=== PATIENT | female | born 1990 | race African-American/Black ===

== ENCOUNTER 2021-01-18 09:17 | Inpatient (IN) ==
[2021-01-18] MEDS ORDERED: ONDANSETRON 4 MG/2 ML VIAL IV PRN ×2 (11:41→23:35)
[2021-01-18] MEDS: LABETALOL 100 MG TABLET PO SCH ×2 (12:04→19:46)
[2021-01-18] MEDS: BUTORPHANOL 2 MG/ML VIAL IV PRN ×2 (12:07→19:04)
[2021-01-18] MEDS: LACTATED RINGERS 1,000 ML IV SCH ×2 (14:14→22:39)
[2021-01-18] MEDS ORDERED: OXYTOCIN/LR 20 UNIT/1,000 ML BAG IV SCH (23:45)
[2021-01-19 00:02] LABS: Basophils % 0.2 % (0.0-0.8); Eosinophils % 0.1 % (0.00-10.9); Hematocrit 33.8 VOL% (35.7-47.0); Hemoglobin 10.6 GM/DL (12.0-16.0); Immature Granulocytes % 0.6 %; Immature Granulocytes Absolute 0.05 #; Lymphocytes # 1.4 10*3/uL (1.4-4.0); Lymphocytes % 16.6 % (21.3-54.2); Mean Corpuscular HGB Conc 31.4 GM/DL (32-36); Mean Corpuscular Volume 97.4 FL (87-102); Mean Platelet Volume 9.4 FL (9.6-12.0); Monocytes % 8.7 % (1.7-12.7); Neutrophils % 73.8 % (38.7-73.9); Platelet Count 308 T/CUMM (130-400); Red Blood Count 3.47 MC/CUMM (3.8-5.5); Red Cell Distribution Width 14.6 % (9.3-17.3); White Blood Count 8.2 T/CUMM (4-12)
[2021-01-19] MEDS ORDERED: NALOXONE 0.4 MG/ML VIAL IV PRN (00:03)
[2021-01-19] MEDS ORDERED: CITRIC ACID/SODIUM CITRATE 30 ML UDCUP PO ONE (00:03)
[2021-01-19] MEDS ORDERED: hydrOXYzine HCL 25 MG/1 ML VIAL IM PRN (00:03)
[2021-01-19] MEDS ORDERED: ONDANSETRON 4 MG/2 ML VIAL IV ONE (00:03)
[2021-01-19] MEDS ORDERED: PROMETHAZINE 25 MG/1 ML VIAL IM ONE (00:03)
[2021-01-19] MEDS ORDERED: ePHEDrine 50 MG/ML VIAL IV PRN (00:03)
[2021-01-19] MEDS ORDERED: FAMOTIDINE 20 MG/2 ML VIAL IV ONE (00:03)
[2021-01-19] MEDS ORDERED: diphenhydrAMINE 50 MG/1 ML VIAL IV PRN ×2 (00:03)
[2021-01-19] MEDS ORDERED: AMPICILLIN INJ 2,000 MG in SODIUM CHLORIDE 0.9% 100 ML IV ONE (00:07)
[2021-01-19 00:28] LABS: Alanine Aminotransferase 19 U/L (13-56); Albumin 2.7 G/DL (3.4-5.0); Alkaline Phosphatase 137 U/L (45-117); Aspartate Amino Transferase 23 U/L (0-37); Bilirubin,Total < 0.39 MG/DL (0.2-1.0); Blood Urea Nitrogen 7 MG/DL (7-18); Calcium 8.9 MG/DL (8.5-10.1); Carbon Dioxide 22 MMOL/L (21-32); Estimated Glom Filtration Rate 118 ML/MIN; Glucose 90 MG/DL (74-106); Osmolality,Calculated 274.5 MOS/KG (273-304); Potassium 3.6 MMOL/L (3.5-5.1); Sodium 139 MMOL/L (136-145); Total Protein 8.2 G/DL (6.4-8.2)
[2021-01-19 00:46] LABS: Hepatitis B Surface Ag Quant < 0.10 Index; Hepatitis B Surface Ag Result Non-Reactive (NonReactive)
[2021-01-19 00:55] LABS: HIV Antigen/Antibody Result Nonreactive (Nonreactive); Rubella Antibody IgG Result Reactive (NonReactive)
[2021-01-19] MEDS: fentaNYL 2 MCG/ROPIV 0.2% EPID 100 ML EPIDURAL SCH ×2 (00:59→08:43)
[2021-01-19] MEDS ORDERED: LABETALOL 100 MG TABLET PO SCH (03:00)
[2021-01-19] MEDS ORDERED: METHYLERGONOVINE 0.2 MG/1 ML AMP ONE (03:04)
[2021-01-19] MEDS ORDERED: CARBOPROST TROMETHAMINE 250 MCG/ML AMP IM ONE (03:04)
[2021-01-19] MEDS ORDERED: TRANEXAMIC ACID 1,000 MG/10 ML VIAL ONE (03:04)
[2021-01-19] MEDS ORDERED: miSOPROStoL 200 MCG TABLET ONE (03:04)
[2021-01-19] MEDS: AMPICILLIN INJ 1,000 MG in SODIUM CHLORIDE 0.9% 100 ML IV SCH ×2 (04:16→08:26)
[2021-01-19] MEDS: LACTATED RINGERS 1,000 ML IV SCH ×4 (04:19→23:07)
[2021-01-19] MEDS ORDERED: BISACODYL 10 MG SUPP RECTAL PRN (12:58)
[2021-01-19] MEDS ORDERED: RHO(D) IMMUNE GLOBULIN 300 MCG SYRINGE IM ONE (12:58)
[2021-01-19] MEDS ORDERED: OXYTOCIN/LR 20 UNIT/1,000 ML BAG IV ONE (12:58)
[2021-01-19] MEDS ORDERED: MEASLES/MUMPS/RUBELLA VACCINE 0.5 ML VIAL SUBCUT ONE (12:58)
[2021-01-19] MEDS ORDERED: WITCH HAZEL PADS 100/JAR TOP PRN (12:58)
[2021-01-19] MEDS ORDERED: oxyCODONE/ACETAMINOPHEN 5-325 MG TABLET PO PRN ×2 (12:58)
[2021-01-19] MEDS ORDERED: ACETAMINOPHEN 325 MG TABLET PO PRN (12:58)
[2021-01-19] MEDS ORDERED: HYDROCORTISONE 2.5% RECTAL CREAM 30 GM TUBE TOP PRN (12:58)
[2021-01-19] MEDS ORDERED: LANOLIN 50% CREAM 0.3 OZ TUBE TOP PRN (12:58)
[2021-01-19] MEDS ORDERED: BENZOCAINE 20%/MENTHOL 0.5% SPRAY 56 GM CAN TOP PRN (12:58)
[2021-01-19] MEDS ORDERED: DIPH/TET/ACEL PERT BOOSTER VACCINE 0.5 ML VIAL IM ONE (12:58)
[2021-01-19] MEDS ORDERED: ONDANSETRON 4 MG/2 ML VIAL IV PRN (12:58)
[2021-01-19] MEDS ORDERED: hydrALAZINE 20 MG/1 ML VIAL IV ONE (13:45)
[2021-01-19 14:19] LABS: PT Patient Result 10.8 SECS (9.8-11.9); Partial Thromboplastin Time 27.9 SECS (23.9-33.8)
[2021-01-19 14:20] LABS: Basophils % 0.1 % (0.0-0.8); Eosinophils % 0.1 % (0.00-10.9); Hematocrit 34.3 VOL% (35.7-47.0); Hemoglobin 10.9 GM/DL (12.0-16.0); Immature Granulocytes % 0.6 %; Immature Granulocytes Absolute 0.07 #; Lymphocytes # 0.8 10*3/uL (1.4-4.0); Lymphocytes % 6.2 % (21.3-54.2); Mean Corpuscular HGB Conc 31.8 GM/DL (32-36); Mean Corpuscular Volume 97.2 FL (87-102); Mean Platelet Volume 9.8 FL (9.6-12.0); Monocytes % 6.3 % (1.7-12.7); NRBC # 0.02 10*3/uL; Neutrophils % 86.7 % (38.7-73.9); Platelet Count 296 T/CUMM (130-400); Red Blood Count 3.53 MC/CUMM (3.8-5.5); Red Cell Distribution Width 14.9 % (9.3-17.3); White Blood Count 12.4 T/CUMM (4-12)
[2021-01-19 14:22] LABS: Albumin 2.5 G/DL (3.4-5.0); Bilirubin,Direct 0.12 MG/DL (0.0-0.20); Bilirubin,Total 1.1 MG/DL (0.2-1.0); Calcium 9.1 MG/DL (8.5-10.1); Osmolality,Calculated 278.3 MOS/KG (273-304); Potassium 4.3 MMOL/L (3.5-5.1); Total Protein 7.7 G/DL (6.4-8.2)
[2021-01-19] MEDS ORDERED: MAGNESIUM SULF RIDER 4 GM in PREMIX 1 EACH IV ONE (15:11)
[2021-01-19] MEDS ORDERED: MAGNESIUM SULF RIDER 100 ML IV ONE (15:20)
[2021-01-19] MEDS: MAGNESIUM SULF DRIP 40 GM/1,000 ML ML IV SCH (15:50)
[2021-01-19] MEDS: IBUPROFEN 800 MG TABLET PO PRN (17:22)
[2021-01-19] MEDS: DOCUSATE SODIUM 100 MG CAPSULE PO SCH (20:47)
[2021-01-20 04:59] LABS: Basophils % 0.2 % (0.0-0.8); Eosinophils # 0.1 10*3/uL (0.0-0.87); Eosinophils % 0.8 % (0.00-10.9); Hematocrit 32.7 VOL% (35.7-47.0); Hemoglobin 10.4 GM/DL (12.0-16.0); Immature Granulocytes % 0.8 %; Lymphocytes # 1.4 10*3/uL (1.4-4.0); Mean Corpuscular HGB Conc 31.8 GM/DL (32-36); Mean Platelet Volume 9.6 FL (9.6-12.0); Monocytes % 6.3 % (1.7-12.7); Neutrophils % 80.9 % (38.7-73.9); Platelet Count 262 T/CUMM (130-400); Red Blood Count 3.37 MC/CUMM (3.8-5.5); Red Cell Distribution Width 14.8 % (9.3-17.3)
[2021-01-20] MEDS: LACTATED RINGERS 1,000 ML IV SCH (07:10)
[2021-01-20] MEDS: IBUPROFEN 800 MG TABLET PO PRN (09:30)
[2021-01-20] MEDS: DOCUSATE SODIUM 100 MG CAPSULE PO SCH ×2 (09:31→21:05)
[2021-01-20] MEDS: MAGNESIUM SULF DRIP 40 GM/1,000 ML ML IV SCH (11:05)
[2021-01-20] MEDS: LABETALOL 100 MG TABLET PO SCH ×2 (16:22→22:00)
[2021-01-21] MEDS ORDERED: LEVOTHYROXINE 125 MCG TABLET PO SCH (06:30)
[2021-01-21] MEDS: LABETALOL 100 MG TABLET PO SCH (08:13)
[2021-01-21] MEDS: DOCUSATE SODIUM 100 MG CAPSULE PO SCH (08:13)
[2021-01-21 12:27] VITALS: BP 143/72
== END 2021-01-21 12:30 | disposition home or self-care (01) | DRG 807 ==
LOC: N.LDOUT 09:17 → N.LD 09:19 → N.OB 01-20 17:30
PROVIDERS: ADMIT Specialist; ATTEND Obstetrics & Gynecology